=== PATIENT | female | born 1950 ===

== ENCOUNTER 2018-06-05 13:09 | Emergency (ER) | payer MEDICARE, OTHER ==
[2018-06-05 13:30] VITALS: RESP 18
--- NOTE | 2018-06-05 13:51 | C.PDOC ---
History Of Present Illness 68 Y/O FEMALE PRESENTS TO ED PERSISTENT OF LEFT LOWER LEG PAIN X 10 DAYS. PATIENT STATES SINCE THEN PAIN IN CALF AREA, PRESENT ONLY WITH WEIGHT BEARING OR WALKING. NO SWELLING, OTHER ASSOCIATED SYMPTOMS. LIMITED RELIEF WITH OTC MEDICATIONS, NONE TAKEN TODAY. EXAM NAD EXT NO ASYM, NONTEND, CORD, DEFORM. NO FOCAL TEND. FULL ANKLE DORSI AND PLANTAR FLEX WO PAIN OR DIFF. SKIN INTACT NO LESIONS ERYTHEMA NEURO INTACT REMAINDER NEG Time Seen by Provider: 06/05/18 13:36 Chief Complaint (Nursing): Lower Extremity Problem/Injury History Per: Patient History/Exam Limitations: no limitations Onset/Duration Of Symptoms: Days Current Symptoms Are (Timing): Still Present Past Medical History Reviewed: Historical Data, Nursing Documentation, Vital Signs Vital Signs: Last Vital Signs Temp 98.3 F 06/05/18 13:24 Pulse 75 06/05/18 13:24 Resp 18 06/05/18 13:24 BP 136/82 06/05/18 13:24 Pulse Ox 98 06/05/18 13:24 - Medical History PMH: HTN, Hypothyroidism Surgical History: No Surg Hx Family History: States: No Known Family Hx - Social History Hx Alcohol Use: No Hx Substance Use: No - Immunization History Hx Tetanus Toxoid Vaccination: No Hx Influenza Vaccination: No Hx Pneumococcal Vaccination: No Review Of Systems Cardiovascular: Negative for: Chest Pain Respiratory: Negative for: Cough, Shortness of Breath Musculoskeletal: Positive for: Leg Pain Skin: Negative for: Bruising Neurological: Negative for: Weakness, Numbness Physical Exam - Physical Exam Appears: Non-toxic, No Acute Distress Skin: Warm, Dry, No Rash Head: Atraumatic, Normacephalic Eye(s): bilateral: Normal Inspection Oral Mucosa: Moist Cardiovascular: Rhythm Regular Respiratory: Normal Breath Sounds, No Rales, No Rhonchi, No Wheezing Extremity: No Tenderness, No Calf Tenderness, Capillary Refill (<2 seconds), No Deformity Extremity: Bilateral: Normal ROM (Full ankle dorsal and plantar flex without pain or difficulty) Pulses: Left Dorsalis Pedis: Normal, Right Dorsalis Pedis: Normal Neurological/Psych: Oriented x3, Normal Speech, Normal Motor, Normal Sensation ED Course And Treatment O2 Sat by Pulse Oximetry: 98 (RA) Pulse Ox Interpretation: Normal - Other Rad TIB FIB X-Ray: Interpreted by Me (NEG) - CT Scan/US DOPPLER Other Rad Studies (CT/US): Radiology Report Reviewed (NEG) Reevaluation Time: 15:53 Reassessment Condition: Improved Disposition Counseled Patient/Family Regarding: Studies Performed, Diagnosis, Need For Followup, Rx Given - Disposition Referrals: YOUR,PMD [Other] Disposition: HOME/ ROUTINE Disposition Time: 15:53 Condition: IMPROVED Additional Instructions: YOUR VENOUS DOPPLER TEST IS NEGATIVE. YOUR XRAY IS NEGATIVE. FOLLOW UP WITH YOUR PMD IF PERSIST SYMPTOMS. Prescriptions: Acetaminophen with Codeine [Tylenol with Codeine No. 3 300 mg-30 mg] 1 tab PO Q6 PRN #12 tab PRN Reason: Pain, Moderate (4-7) Ibuprofen [Motrin] 400 mg PO QID #30 tab Lidocaine 5% [Lidoderm] 2 patch TOP ONCE PRN #20 patch MDD 3 PATCHES PRN Reason: Pain, Moderate (4-7) Instructions: Muscle Strain (DC) Forms: [facility] [employer] (Spanish) - Clinical Impression Clinical Impression: Calf pain, Contusion of leg - Scribe Statement The provider has reviewed the documentation as recorded by the Anjelica Santos All medical record entries made by the Anjelica were at my direction and personally dictated by me. I have reviewed the chart and agree that the record accurately reflects my personal performance of the history, physical exam, medical decision making, and the department course for this patient. I have also personally directed, reviewed, and agree with the discharge instructions and disposition.
[2018-06-05] MEDS ORDERED: Lidocaine 5% Patch TD STA (13:59)
[2018-06-05] MEDS ORDERED: Lidocaine 5% Patch TD ONE ×2 (14:26→16:19)
[2018-06-05 16:29] VITALS: BP 133/79; PULSE 81; TEMP 98.4; O2SAT 97
--- NOTE | 2018-06-05 16:52 | RAD ---
Date of service: 06/05/2018 PROCEDURE: Radiographs of the left tibia and fibula. HISTORY: TRAUMA COMPARISON: None available. TECHNIQUE: Frontal and lateral views obtained. FINDINGS: BONES: No fracture or destructive lesion. JOINT SPACES: Unremarkable. OTHER FINDINGS: [place]'s tendon insetional enesthesophyte. IMPRESSION: No fracture or lytic lesion. Incidental [place]'s tendon insetional enesthesophyte.
--- NOTE | 2018-06-06 12:08 | VASCLAB ---
Date of service: 06/05/2018 PROCEDURE: Left Lower Extremity Venous Duplex Exam. HISTORY: Pain in limb. PRIORS: None. TECHNIQUE: Left common femoral, femoral, popliteal and posterior tibial, peroneal and great saphenous veins were evaluated. Flow was assessed with color Doppler, compressibility, assessment of phasic flow and augmentation response. Report prepared by ADRIENNE Mcneal FINDINGS: LEFT: 1. Common Femoral Vein: 1.1. Compressibility - Fully compressible: Thrombus - None : Flow - Phasic: Augmentation -Normal: Reflux - None. 2. Femoral Vein: 2.1. Compressibility - Fully compressible: Thrombus - None: Flow - Phasic: Augmentation -Normal: Reflux - None. 3. Popliteal Vein: 3.1. Compressibility - Fully compressible: Thrombus - None: Flow - Phasic: Augmentation -Normal: Reflux - None. 4. Posterior Tibial Vein: 4.1. Compressibility - Fully compressible: Thrombus - None: Flow - Phasic: Augmentation -Normal: Reflux - None. 5. Peroneal Vein: 5.1. Compressibility - Fully compressible: Thrombus - None: Flow - Phasic: Augmentation -Normal: Reflux - None. 6. Great Saphenous Vein: 6.1. Compressibility - Fully compressible: Thrombus - None: Flow - Phasic: Augmentation - Normal: Reflux - Severe 3.78s OTHER FINDINGS: Normal venous flow noted in the right common femoral vein. IMPRESSION: No evidence of deep or superficial vein thrombosis of the left lower extremity with excellent venous flow. Valvular incompetence noted of the left upper great saphenous vein.
== END 2018-06-05 16:29 | disposition home or self-care (01) ==
LOC: C.ER 13:09
DX: S80.12XA Contusion of left lower leg, initial encounter (principal); X58.XXXA Exposure to other specified factors, initial encounter; M79.662 Pain in left lower leg
CPT/HCPCS: 73590; 93971; 96372; 99284; J1885